=== PATIENT | male | born 1955 | race Caucasian/White ===

== ENCOUNTER → 2017-03-15 | Outpatient (CLI) | payer BC ==
[~2017-03-15] MED LIST: CRESTOR10 MG PO; ESTER-C 1,0001 EACH PO; FISH OIL300 MG PO; GLUCOSAMINE &1 EAC1 PO; MEN'S MULTI-VI1 EACH PO; NORVASC10 MG PO; PROTONIX40 MG PO; SINGULAIR10 MG PO; TOPROL XL100 MG PO; ZOLOFT100 MG PO
== END | disposition home or self-care (01) ==
DX: M17.11 Unilateral primary osteoarthritis, right knee (principal); R29.3 Abnormal posture; R26.9 Unspecified abnormalities of gait and mobility; M79.604 Pain in right leg; M25.561 Pain in right knee; M25.661 Stiffness of right knee, not elsewhere classified; Z74.1 Need for assistance with personal care
CPT/HCPCS: 97110 GP; 97150 GO; 97161 GP; 97165 GO

== ENCOUNTER 2017-04-17 21:07 | Inpatient (IN) | payer BC ==
[~2017-04-17] VITALS: Ht 185.4 cm; Wt 130.2 kg
[~2017-04-17 21:07] MED LIST changes: +CLARITIN,ALAVAR10 MG PO
[2017-04-18 05:52] VITALS: BP 138/62
[2017-04-18 10:28] LABS: HEMATOCRIT 47.3 % (38.0-50.0); MCHC 33.8 G/DL (30.0-36.0); MCV 91.7 FL (86-99); PLATELET COUNT 245 K/uL (156-360); RBC DIS.WIDTH-SD 40.5 % (39-53); RED BLOOD COUNT 5.16 M/uL (4.00-5.50); WHITE BLOOD COUNT 13.3 K/uL (4.1-10.2)
[2017-04-18 10:56] VITALS: BP 118/63
[2017-04-18 15:44] VITALS: BP 170/80
[2017-04-18 19:59] VITALS: BP 169/80
[2017-04-19 00:03] VITALS: BP 177/84
[2017-04-19 03:37] VITALS: BP 185/86
[2017-04-19 07:05] LABS: HEMATOCRIT 48.1 % (38.0-50.0); MCV 90.8 FL (86-99)
[2017-04-19 07:26] LABS: ANION GAP 14 MEQ/L (2-14); CHLORIDE 99 MEQ/L (99-109); GFR ESTIMATE (CALCULATED) > 59 mL/min/; GLUCOSE 149 mg/dL (70-99); POTASSIUM 4.3 MEQ/L (3.7-5.4); SAMPLE HEMOLYSIS CHECK 0; SAMPLE ICTERIC CHECK 0; SAMPLE LIPEMIA CHECK 0; SODIUM 136 MEQ/L (136-147); UREA NITROGEN (BUN) 17 mg/dL (9-23)
[2017-04-19 07:40] VITALS: BP 179/80
[2017-04-19 11:33] VITALS: BP 156/70
[2017-04-19 15:32] VITALS: BP 172/77
[2017-04-19 19:44] VITALS: BP 177/77
[2017-04-20] VITALS: BP 172/79
[2017-04-20 04:08] VITALS: BP 159/74
[2017-04-20 05:47] LABS: HEMATOCRIT 43.4 % (38.0-50.0); MCV 91.8 FL (86-99)
[2017-04-20 08:00] VITALS: BP 154/67
[2017-04-20] MEDS ORDERED: DOCUSATE SODIU100 MG PO (08:18)
[2017-04-20] MEDS ORDERED: LOVENOX40 MG/0.4 SC (08:18)
[2017-04-20] MEDS ORDERED: CELECOXIB200 MG PO (08:18)
[2017-04-20] MEDS ORDERED: ENDOCET 5-3251 EACH PO (08:18)
[2017-04-20 11:43] VITALS: BP 152/73
== END 2017-04-20 14:33 | DRG 470 ==
LOC: ENRESERV 21:07 → 3WEST 04-18 05:29 → 2SOUTH 04-18 05:29 → 3WEST 04-18 10:33 → 2SOUTH 04-18 10:35 → 3WEST 04-20 14:33
PROVIDERS: Orthopaedic Surgery
PROC: 0SRC0J9 Replacement of Right Knee Joint with Synthetic Substitute, Cemented, Open Approach (ICD-10-PCS; principal; 2017-04-18)
DX: M17.11 Unilateral primary osteoarthritis, right knee (principal); I10 Essential (primary) hypertension; E78.5 Hyperlipidemia, unspecified; K21.9 Gastro-esophageal reflux disease without esophagitis; G47.30 Sleep apnea, unspecified; Z68.37 Body mass index [BMI] 37.0-37.9, adult; Z88.0 Allergy status to penicillin; Z88.2 Allergy status to sulfonamides
CPT/HCPCS: 73560; 80048; 85014; 85018; 85027; 93971; 94660; C1713; J0131; J1170; J1650; J2250; J7050

== ENCOUNTER 2017-04-23 14:21 | Inpatient (IN) | payer BC ==
[~2017-04-23] VITALS: Ht 185.4 cm; Wt 128.0 kg
[~2017-04-23 14:21] MED LIST changes: +CELECOXIB200 MG PO; +DOCUSATE SODIU100 MG PO; +ENDOCET 5-3251 EACH PO; +LOVENOX40 MG/0.4 SC
[2017-04-23 17:02] LABS: BASOPHIL COUNT 0.1 K/uL (0-0.1); EOSINOPHIL COUNT 0.4 K/uL (0-0.3); HEMATOCRIT 42.9 % (38.0-50.0); IMMATURE GRANULOCYTE (%) 0.9 % (0.0-0.7); IMMATURE GRANULOCYTE COUNT 0.1 K/uL; INSTRUMENT ABS NEUTROPHIL CT 9.3 K/uL; LYMPHOCYTE COUNT 2.7 K/uL (1.0-2.8); MCHC 34.5 G/DL (30.0-36.0); MCV 89.7 FL (86-99); MEAN PLAT.VOLUME 9.9 uM^3 (9.0-12.4); MONOCYTE COUNT 0.9 K/uL (0-0.8); NEUTROPHIL (%) 68.7 % (45-76); NEUTROPHIL COUNT 9.3 K/uL (1.8-6.4); PLATELET COUNT 315 K/uL (156-360); RBC DIS.WIDTH-CV 11.9 % (11.8-14.6); RBC DIS.WIDTH-SD 38.9 % (39-53); RED BLOOD COUNT 4.78 M/uL (4.00-5.50); WHITE BLOOD COUNT 13.5 K/uL (4.1-10.2)
[2017-04-23 17:08] LABS: INTER. NORMALIZED RATIO 1.2; PROTHROMBIN TIME 13.2 SEC (10.2-12.9)
[2017-04-23 17:10] LABS: CHLORIDE 97 mEq/L (99-109); SODIUM 135 mEq/L (136-147)
[2017-04-23 17:11] LABS: PTT 31.7 SEC (25-37)
[2017-04-23 17:12] LABS: GLUCOSE 102 mg/dL (70-99)
[2017-04-23 17:13] LABS: ANION GAP 11 MEQ/L (2-14)
[2017-04-23 17:14] LABS: TOTAL BILIRUBIN 0.7 mg/dL (0.0-1.0)
[2017-04-23 17:15] LABS: ALKALINE PHOSPHATASE 152 IU/L (3-129)
[2017-04-23 17:16] LABS: GFR ESTIMATE (CALCULATED) > 59 mL/min/
[2017-04-23 17:17] LABS: UREA NITROGEN (BUN) 14 mg/dL (9-23)
[2017-04-23] MEDS ORDERED: CELECOXIB200 MG PO (18:09)
[2017-04-23] MEDS ORDERED: HYDROCHLOROTHIA25 MG PO (18:10)
[2017-04-23] MEDS ORDERED: LEXAPRO10 MG PO (18:10)
[2017-04-23] MEDS ORDERED: PERCOCET 5/31 TABLET PO (18:10)
[2017-04-23] MEDS ORDERED: VITAMIN D5000 UNI1 PO (18:10)
[2017-04-23 18:40] LABS: ERTH.SED.RATE 82 MM/HR (0-20)
[2017-04-23 19:18] LABS: C-REACTIVE PROTEIN 193.2 MG/L (0-10)
[2017-04-23 20:05] VITALS: BP 178/83
[2017-04-24] VITALS (7 sets, daily range): BP systolic 133–176; BP diastolic 73–84
[2017-04-24 01:10] LABS: INTER. NORMALIZED RATIO 1.1
[2017-04-24 01:12] LABS: PTT 34.3 SEC (25-37)
[2017-04-24 07:19] LABS: HEMATOCRIT 43.4 % (38.0-50.0); MCH 31.3 PG (29.0-34.0); MCHC 34.3 G/DL (30.0-36.0); MCV 91.2 FL (86-99); MEAN PLAT.VOLUME 10.1 uM^3 (9.0-12.4); PLATELET COUNT 326 K/uL (156-360); RBC DIS.WIDTH-CV 12.2 % (11.8-14.6); RBC DIS.WIDTH-SD 40.5 % (39-53); RED BLOOD COUNT 4.76 M/uL (4.00-5.50); WHITE BLOOD COUNT 14.3 K/uL (4.1-10.2)
[2017-04-24 07:24] LABS: INTER. NORMALIZED RATIO 1.2; PROTHROMBIN TIME 13.3 SEC (10.2-12.9)
[2017-04-24 07:36] LABS: ANION GAP 10 MEQ/L (2-14); CHLORIDE 99 MEQ/L (99-109); GFR ESTIMATE (CALCULATED) > 59 mL/min/; GLUCOSE 116 mg/dL (70-99); POTASSIUM 4.9 MEQ/L (3.7-5.4); SAMPLE HEMOLYSIS CHECK 0; SAMPLE ICTERIC CHECK 0; SAMPLE LIPEMIA CHECK 0; SODIUM 136 MEQ/L (136-147); UREA NITROGEN (BUN) 14 mg/dL (9-23)
[2017-04-24 13:59] LABS: INTER. NORMALIZED RATIO 1.2; PROTHROMBIN TIME 13.5 SEC (10.2-12.9)
[2017-04-24 14:01] LABS: PTT 32.5 SEC (25-37)
[2017-04-24 20:25] LABS: INTER. NORMALIZED RATIO 1.2; PROTHROMBIN TIME 13.2 SEC (10.2-12.9)
[2017-04-24 20:27] LABS: PTT 38.6 SEC (25-37)
[2017-04-25 03:07] LABS: BASOPHIL COUNT 0.1 K/uL (0-0.1); EOSINOPHIL (%) 3.6 % (0-5); EOSINOPHIL COUNT 0.6 K/uL (0-0.3); HEMATOCRIT 43.4 % (38.0-50.0); IMMATURE GRANULOCYTE COUNT 0.2 K/uL; INSTRUMENT ABS NEUTROPHIL CT 10.4 K/uL; LYMPHOCYTE COUNT 3.3 K/uL (1.0-2.8); MCH 30.8 PG (29.0-34.0); MCHC 34.3 G/DL (30.0-36.0); MCV 89.9 FL (86-99); MEAN PLAT.VOLUME 9.6 uM^3 (9.0-12.4); MONOCYTE (%) 7.7 % (3-12); MONOCYTE COUNT 1.2 K/uL (0-0.8); NEUTROPHIL (%) 66.2 % (45-76); NEUTROPHIL COUNT 10.4 K/uL (1.8-6.4); PLATELET COUNT 354 K/uL (156-360); RBC DIS.WIDTH-CV 11.9 % (11.8-14.6); RBC DIS.WIDTH-SD 39.2 % (39-53); RED BLOOD COUNT 4.83 M/uL (4.00-5.50); WHITE BLOOD COUNT 15.7 K/uL (4.1-10.2)
[2017-04-25 03:12] LABS: INTER. NORMALIZED RATIO 1.2; PROTHROMBIN TIME 13.1 SEC (10.2-12.9)
[2017-04-25 03:15] VITALS: BP 137/81
[2017-04-25 03:15] LABS: PTT 31.1 SEC (25-37)
[2017-04-25 03:26] LABS: CHLORIDE 100 mEq/L (99-109); POTASSIUM 4.9 mEq/L (3.7-5.4); SODIUM 136 mEq/L (136-147)
[2017-04-25 03:28] LABS: GLUCOSE 118 mg/dL (70-99)
[2017-04-25 03:30] LABS: ANION GAP 12 MEQ/L (2-14)
[2017-04-25 03:32] LABS: GFR ESTIMATE (CALCULATED) > 59 mL/min/
[2017-04-25 03:33] LABS: UREA NITROGEN (BUN) 18 mg/dL (9-23)
[2017-04-25 07:50] VITALS: BP 154/75
[2017-04-25 11:53] VITALS: BP 152/84
[2017-04-25 16:18] VITALS: BP 147/84
[2017-04-25 19:15] VITALS: BP 191/86
[2017-04-25 20:48] LABS: INTER. NORMALIZED RATIO 1.2; PROTHROMBIN TIME 14.3 SEC (10.2-12.9)
[2017-04-25 23:42] VITALS: BP 163/83
[2017-04-26 01:35] LABS: BASOPHIL COUNT 0.1 K/uL (0-0.1); EOSINOPHIL (%) 2.9 % (0-5); EOSINOPHIL COUNT 0.5 K/uL (0-0.3); HEMATOCRIT 43.2 % (38.0-50.0); IMMATURE GRANULOCYTE (%) 1.3 % (0.0-0.7); IMMATURE GRANULOCYTE COUNT 0.2 K/uL; INSTRUMENT ABS NEUTROPHIL CT 10.3 K/uL; LYMPHOCYTE COUNT 3.9 K/uL (1.0-2.8); MCH 30.8 PG (29.0-34.0); MCHC 34.5 G/DL (30.0-36.0); MCV 89.3 FL (86-99); MEAN PLAT.VOLUME 9.5 uM^3 (9.0-12.4); MONOCYTE (%) 7.8 % (3-12); MONOCYTE COUNT 1.3 K/uL (0-0.8); NEUTROPHIL (%) 63.4 % (45-76); NEUTROPHIL COUNT 10.3 K/uL (1.8-6.4); PLATELET COUNT 402 K/uL (156-360); RBC DIS.WIDTH-CV 11.8 % (11.8-14.6); RBC DIS.WIDTH-SD 38.4 % (39-53); RED BLOOD COUNT 4.84 M/uL (4.00-5.50); WHITE BLOOD COUNT 16.2 K/uL (4.1-10.2)
[2017-04-26 01:46] LABS: INTER. NORMALIZED RATIO 1.3; PROTHROMBIN TIME 14.8 SEC (10.2-12.9)
[2017-04-26 02:17] LABS: CHLORIDE 97 mEq/L (99-109); POTASSIUM 4.6 mEq/L (3.7-5.4); SODIUM 137 mEq/L (136-147)
[2017-04-26 02:18] LABS: GLUCOSE 124 mg/dL (70-99)
[2017-04-26 02:20] LABS: ANION GAP 16 MEQ/L (2-14)
[2017-04-26 02:22] LABS: GFR ESTIMATE (CALCULATED) > 59 mL/min/
[2017-04-26 02:23] LABS: UREA NITROGEN (BUN) 18 mg/dL (9-23)
[2017-04-26 03:55] VITALS: BP 162/79
[2017-04-26 07:31] LABS: ADD MIUA? YES; BILIRUBIN NEGATIVE; BLOOD MODERATE; COLOR YELLOW ((YELLOW)); GLUCOSE (STRIP) NEGATIVE; KETONES NEGATIVE; LEUKOCYTES NEGATIVE; NITRITE NEGATIVE; PROTEIN (STRIP) NEGATIVE; SPECIFIC GRAVITY 1.021 (1.000-1.030); UROBILINOGEN 0.2 MG/DL (0.2-1.0)
[2017-04-26 07:36] LABS: BACTERIA NONE SEEN /HPF; EPITHELIAL CELLS NONE SEEN /HPF; MUCUS NONE SEEN /LPF; RED BLOOD CELLS 20-30 /HPF (0-5); UCUL ADDED? NO; WHITE BLOOD CELLS 0-5 /HPF (0-5)
[2017-04-26 09:31] VITALS: BP 162/78
[2017-04-26 11:12] VITALS: BP 163/82
[2017-04-26 16:37] VITALS: BP 162/79
[2017-04-27 00:34] VITALS: BP 168/89
[2017-04-27 07:16] LABS: BASOPHIL COUNT 0.2 K/uL (0-0.1); EOSINOPHIL (%) 3.7 % (0-5); EOSINOPHIL COUNT 0.6 K/uL (0-0.3); HEMATOCRIT 44.6 % (38.0-50.0); IMMATURE GRANULOCYTE (%) 1.8 % (0.0-0.7); IMMATURE GRANULOCYTE COUNT 0.3 K/uL; INSTRUMENT ABS NEUTROPHIL CT 10.1 K/uL; LYMPHOCYTE COUNT 3.6 K/uL (1.0-2.8); MCH 30.4 PG (29.0-34.0); MCHC 33.6 G/DL (30.0-36.0); MCV 90.5 FL (86-99); MEAN PLAT.VOLUME 9.7 uM^3 (9.0-12.4); MONOCYTE (%) 7.4 % (3-12); MONOCYTE COUNT 1.2 K/uL (0-0.8); NEUTROPHIL (%) 63.3 % (45-76); NEUTROPHIL COUNT 10.1 K/uL (1.8-6.4); PLATELET COUNT 432 K/uL (156-360); RBC DIS.WIDTH-CV 11.9 % (11.8-14.6); RBC DIS.WIDTH-SD 39.7 % (39-53); RED BLOOD COUNT 4.93 M/uL (4.00-5.50)
[2017-04-27 07:50] LABS: ANION GAP 10 MEQ/L (2-14); CHLORIDE 97 MEQ/L (99-109); GFR ESTIMATE (CALCULATED) > 59 mL/min/; GLUCOSE 117 mg/dL (70-99); POTASSIUM 4.7 MEQ/L (3.7-5.4); SAMPLE HEMOLYSIS CHECK 0; SAMPLE ICTERIC CHECK 0; SAMPLE LIPEMIA CHECK 0; SODIUM 135 MEQ/L (136-147); UREA NITROGEN (BUN) 21 mg/dL (9-23)
[2017-04-27 08:22] VITALS: BP 155/75
[2017-04-27 08:35] LABS: INTER. NORMALIZED RATIO 1.6; PROTHROMBIN TIME 18.4 SEC (10.2-12.9)
[2017-04-27 08:38] LABS: PTT 68.5 SEC (25-37)
[2017-04-27 15:26] VITALS: BP 136/78
[2017-04-27 23:08] VITALS: BP 169/82
[2017-04-28 06:28] LABS: BASOPHIL COUNT 0.2 K/uL (0-0.1); EOSINOPHIL (%) 3.3 % (0-5); EOSINOPHIL COUNT 0.5 K/uL (0-0.3); HEMATOCRIT 42.7 % (38.0-50.0); IMMATURE GRANULOCYTE (%) 1.9 % (0.0-0.7); IMMATURE GRANULOCYTE COUNT 0.3 K/uL; INSTRUMENT ABS NEUTROPHIL CT 9.1 K/uL; LYMPHOCYTE COUNT 3.6 K/uL (1.0-2.8); MCV 91.2 FL (86-99); MEAN PLAT.VOLUME 9.6 uM^3 (9.0-12.4); MONOCYTE (%) 6.8 % (3-12); NEUTROPHIL (%) 62.3 % (45-76); NEUTROPHIL COUNT 9.1 K/uL (1.8-6.4); PLATELET COUNT 405 K/uL (156-360); RBC DIS.WIDTH-SD 40.2 % (39-53); RED BLOOD COUNT 4.68 M/uL (4.00-5.50); WHITE BLOOD COUNT 14.5 K/uL (4.1-10.2)
[2017-04-28 06:45] LABS: INTER. NORMALIZED RATIO 1.9; PROTHROMBIN TIME 21.6 SEC (10.2-12.9)
[2017-04-28 06:53] LABS: ANION GAP 9 MEQ/L (2-14); CHLORIDE 98 MEQ/L (99-109); GFR ESTIMATE (CALCULATED) > 59 mL/min/; GLUCOSE 114 mg/dL (70-99); POTASSIUM 4.9 MEQ/L (3.7-5.4); SAMPLE HEMOLYSIS CHECK 0; SAMPLE ICTERIC CHECK 0; SAMPLE LIPEMIA CHECK 0; SODIUM 137 MEQ/L (136-147); UREA NITROGEN (BUN) 20 mg/dL (9-23)
[2017-04-28 08:19] VITALS: BP 142/78
[2017-04-28 16:57] VITALS: BP 176/86
[2017-04-28 23:19] VITALS: BP 157/77
[2017-04-29 05:40] LABS: HEMATOCRIT 41.7 % (38.0-50.0); MCH 31.2 PG (29.0-34.0); MCHC 34.5 G/DL (30.0-36.0); MCV 90.5 FL (86-99); MEAN PLAT.VOLUME 9.4 uM^3 (9.0-12.4); PLATELET COUNT 386 K/uL (156-360); RBC DIS.WIDTH-CV 11.9 % (11.8-14.6); RBC DIS.WIDTH-SD 39.5 % (39-53); RED BLOOD COUNT 4.61 M/uL (4.00-5.50)
[2017-04-29 06:06] LABS: INTER. NORMALIZED RATIO 2.3; PROTHROMBIN TIME 26.4 SEC (10.2-12.9)
[2017-04-29 06:21] LABS: PTT 123.8 SEC (25-37)
[2017-04-29 08:40] VITALS: BP 181/82
[2017-04-29] MEDS ORDERED: COUMADIN5 MG PO (11:59)
[2017-04-29] MEDS ORDERED: COUMADIN7.5 MG PO (11:59)
[2017-04-29 13:10] LABS: INTER. NORMALIZED RATIO 2.3; PROTHROMBIN TIME 26.4 SEC (10.2-12.9)
== END 2017-04-29 13:28 | disposition home or self-care (01) | DRG 301 ==
LOC: EME 14:21 → EDOF 18:21 → 3EAST 18:21 → ENRESERV 18:22 → 3EAST 19:53
PROVIDERS: Emergency Medicine; Hospitalist; Internal Medicine; Student in an Organized Health Care Education/Training Program
PROC: 5A09357 Assistance with Respiratory Ventilation, Less than 24 Consecutive Hours, Continuous Positive Airway Pressure (ICD-10-PCS; principal; 2017-04-23)
DX: I82.441 Acute embolism and thrombosis of right tibial vein (principal); E78.5 Hyperlipidemia, unspecified; I10 Essential (primary) hypertension; G47.33 Obstructive sleep apnea (adult) (pediatric); Z96.651 Presence of right artificial knee joint; F32.9 Major depressive disorder, single episode, unspecified; R74.0 Nonspecific elevation of levels of transaminase and lactic acid dehydrogenase [LDH]; R74.8 Abnormal levels of other serum enzymes; F17.210 Nicotine dependence, cigarettes, uncomplicated; E66.9 Obesity, unspecified; Z85.528 Personal history of other malignant neoplasm of kidney; Z68.37 Body mass index [BMI] 37.0-37.9, adult; Z88.2 Allergy status to sulfonamides; Z88.0 Allergy status to penicillin; Z91.041 Radiographic dye allergy status; Z90.5 Acquired absence of kidney
CPT/HCPCS: 71010; 80048; 80053; 81003; 83605; 85025; 85027; 85610; 85651; 85730; 86140; 87040; 93971; 94660; 99281; 99285

== ENCOUNTER 2017-10-14 09:15 | Emergency (ER) | payer BC ==
[~2017-10-14] VITALS: Ht 185.4 cm; Wt 127.8 kg
[~2017-10-14 09:15] MED LIST changes: +COUMADIN5 MG PO; +COUMADIN7.5 MG PO; +HYDROCHLOROTHIA25 MG PO; +LEXAPRO10 MG PO; +PERCOCET 5/31 TABLET PO; +VITAMIN D5000 UNI1 PO
[2017-10-14 09:54] LABS: HEMOGLOBIN 18.9 G/DL (12.5-16.6); MCHC 35.7 G/DL (30.0-36.0); PLATELET COUNT 283 K/uL (156-360); RBC DIS.WIDTH-SD 41.2 % (39-53); RED BLOOD COUNT 6.09 M/uL (4.00-5.50)
[2017-10-14 09:56] LABS: ALBUMIN 4.7 g/dL (3.2-4.8); CHLORIDE 104 mEq/L (99-109); POTASSIUM 4.3 mEq/L (3.7-5.4); SODIUM 138 mEq/L (136-147)
[2017-10-14 09:58] LABS: GLUCOSE 138 mg/dL (70-99); TOTAL PROTEIN 8.1 g/dL (6.4-8.3)
[2017-10-14 10:00] LABS: TOTAL BILIRUBIN 0.5 mg/dL (0.0-1.0)
[2017-10-14 10:02] LABS: ALKALINE PHOSPHATASE 72 IU/L (3-129); GFR ESTIMATE (CALCULATED) > 59 mL/min/ (58.99-99999)
[2017-10-14 10:03] LABS: UREA NITROGEN (BUN) 17 mg/dL (9-23)
[2017-10-14 10:04] LABS: AST (GOT) 128 IU/L (2-34)
[2017-10-14 10:05] LABS: ALT (GPT) 212 IU/L (3-49)
[2017-10-14 11:33] LABS: APPEARANCE CLEAR ((CLEAR)); BILIRUBIN NEGATIVE; BLOOD NEGATIVE; COLOR AMBER ((YELLOW)); GLUCOSE (STRIP) NEGATIVE; KETONES NEGATIVE; LEUKOCYTES NEGATIVE; NITRITE NEGATIVE; PROTEIN (STRIP) >=500; SPECIFIC GRAVITY 1.032 (1.000-1.030); UROBILINOGEN 0.2 MG/DL (0.2-1.0)
[2017-10-14 11:37] LABS: BACTERIA RARE /HPF; EPITHELIAL CELLS RARE /HPF; HYALINE CASTS 0-5 /LPF; MUCUS 2+ /LPF; RED BLOOD CELLS 0-5 /HPF (0-5); UCUL ADDED? NO; WHITE BLOOD CELLS 0-5 /HPF (0-5)
[2017-10-14 12:25] LABS: C DIFF TOXIN NEGATIVE (NEGATIVE)
[2017-10-14 12:43] LABS: LIPASE 26 U/L (1.0-51.0)
[2017-10-14] MEDS ORDERED: LEVSIN-SL0.125 MG SL (14:10)
[2017-10-14] MEDS ORDERED: ZOFRAN ODT4 MG PO (14:10)
[2017-10-14 14:38] VITALS: BP 142/76
== END 2017-10-14 14:38 | disposition home or self-care (01) ==
LOC: EME 09:15
PROVIDERS: Nurse Practitioner Family
DX: K52.9 Noninfective gastroenteritis and colitis, unspecified (principal); E86.0 Dehydration; K56.600 Partial intestinal obstruction, unspecified as to cause; R79.89 Other specified abnormal findings of blood chemistry; E78.5 Hyperlipidemia, unspecified; Z85.528 Personal history of other malignant neoplasm of kidney; K21.9 Gastro-esophageal reflux disease without esophagitis; I10 Essential (primary) hypertension; Z87.442 Personal history of urinary calculi; F17.200 Nicotine dependence, unspecified, uncomplicated; Z88.2 Allergy status to sulfonamides; Z88.0 Allergy status to penicillin; Z91.041 Radiographic dye allergy status; Z79.891 Long term (current) use of opiate analgesic
CPT/HCPCS: 74176; 80053; 81003; 83690; 85027; 87177; 87493; 87506; 99281; 99285; J2405; J7030

== ENCOUNTER 2017-11-27 21:48 | Inpatient (IN) | payer BC ==
[~2017-11-27] VITALS: Ht 185.4 cm; Wt 130.5 kg
[~2017-11-27 21:48] MED LIST changes: +CYMBALTA30 MG PO; +GLUCOSAMINE1000 MG PO; +LEVSIN-SL0.125 MG SL; +METOPROLOL SUC100 MG PO; +ZOFRAN ODT4 MG PO
[2017-11-28 10:26] VITALS: BP 153/74
[2017-11-28 15:43] LABS: HEMATOCRIT 46.4 % (38.0-50.0); HEMOGLOBIN 15.8 G/DL (12.5-16.6); MCH 30.4 PG (29.0-34.0); MCHC 34.1 G/DL (30.0-36.0); MCV 89.2 FL (86-99); PLATELET COUNT 254 K/uL (156-360); RBC DIS.WIDTH-CV 13.1 % (11.8-14.6); RBC DIS.WIDTH-SD 42.5 % (39-53)
[2017-11-28 16:41] VITALS: BP 136/66
[2017-11-28 20:12] VITALS: BP 138/75
[2017-11-29 00:20] VITALS: BP 173/87
[2017-11-29 03:34] VITALS: BP 168/82
[2017-11-29 06:16] LABS: HEMATOCRIT 47.8 % (38.0-50.0); HEMOGLOBIN 16.5 G/DL (12.5-16.6); MCV 88.4 FL (86-99)
[2017-11-29 06:40] LABS: CHLORIDE 98 MEQ/L (99-109); CREATININE 0.8 MG/DL (0.6-1.3); GFR ESTIMATE (CALCULATED) > 59 mL/min/ (58.99-99999); GLUCOSE 152 mg/dL (70-99); POTASSIUM 4.6 MEQ/L (3.7-5.4); SODIUM 135 MEQ/L (136-147); UREA NITROGEN (BUN) 12 mg/dL (9-23)
[2017-11-29 12:21] VITALS: BP 161/81
[2017-11-29 16:02] VITALS: BP 172/85
[2017-11-29 19:58] VITALS: BP 171/81
[2017-11-30 00:33] VITALS: BP 178/80
[2017-11-30 00:45] VITALS: BP 160/78
[2017-11-30 04:12] VITALS: BP 168/82
[2017-11-30 05:30] LABS: HEMATOCRIT 45.1 % (38.0-50.0); HEMOGLOBIN 15.6 G/DL (12.5-16.6); MCV 87.9 FL (86-99)
[2017-11-30 08:00] VITALS: BP 157/73
[2017-11-30] MEDS ORDERED: LOVENOX80 MG/0.8 SC (08:52)
[2017-11-30] MEDS ORDERED: METHOCARBAMOL500 MG PO (08:52)
[2017-11-30] MEDS ORDERED: ENDOCET 5-3251 EACH PO (08:52)
[2017-11-30] MEDS ORDERED: OXYCONTIN10 MG PO (08:52)
[2017-11-30 12:31] VITALS: BP 117/77
== END 2017-11-30 15:50 | DRG 470 ==
LOC: ENRESERV 21:48 → 2SOUTH 11-28 08:48 → 3WEST 11-28 16:06
PROVIDERS: Orthopaedic Surgery
PROC: 0SRD0J9 Replacement of Left Knee Joint with Synthetic Substitute, Cemented, Open Approach (ICD-10-PCS; principal; 2017-11-28)
PROC: 5A09357 Assistance with Respiratory Ventilation, Less than 24 Consecutive Hours, Continuous Positive Airway Pressure (ICD-10-PCS; 2017-11-28)
DX: M17.12 Unilateral primary osteoarthritis, left knee (principal); G47.33 Obstructive sleep apnea (adult) (pediatric); F17.210 Nicotine dependence, cigarettes, uncomplicated; F43.22 Adjustment disorder with anxiety; D75.1 Secondary polycythemia; K76.0 Fatty (change of) liver, not elsewhere classified; E66.9 Obesity, unspecified; E78.5 Hyperlipidemia, unspecified; I10 Essential (primary) hypertension; K21.9 Gastro-esophageal reflux disease without esophagitis; Z96.651 Presence of right artificial knee joint; Z68.37 Body mass index [BMI] 37.0-37.9, adult; Z88.0 Allergy status to penicillin; Z88.2 Allergy status to sulfonamides; Z91.041 Radiographic dye allergy status; Z86.718 Personal history of other venous thrombosis and embolism
CPT/HCPCS: 73560; 80048; 85014; 85018; 85027; 94799; C1713; J1170; J1650; J2250; J2405; J2795; J7030; J7050; S0020